=== PATIENT | male | born 2000 | race Caucasian/White ===

== ENCOUNTER 2021-04-14 13:13 | Emergency (ER) | payer BC ==
--- NOTE | 2021-04-14 13:44 | EDPHYS ---
Physician Documentation [facility] Name: Jorge A Ybarra Age: 20 yrs Sex: Male : 2000 Arrival Date: 04/14/2021 Time: 13:15 Bed 8 Private MD: ED Physician Alex Dalton HPI: 04/14 13:42 This 20 yrs old Male presents to ER via Ambulatory with complaints of kb Laceration To Hand. 13:42 The patient has a laceration related to: cutting sausage and cut heel of hand occurred kb at home, and there are no complicating factors. The injury was accidental. The laceration(s) is(are) located on the heel of left hand. Onset: The symptoms/episode began/occurred just prior to arrival. Associated signs and symptoms: The patient has no apparent associated signs or symptoms. The patient has not experienced similar symptoms in the past. The patient has not recently seen a physician. Historical: - Allergies: 13:28 No Known Allergies; kg - Home Meds: 13:28 None [Active]; kg - PMHx: 13:28 None; kg - PSHx: 13:28 right elbow sx; kg - Immunization history:: Adult Immunizations not up to date, Client reports having NOT received the Covid vaccine. - Social history:: Smoking status: Patient denies any tobacco usage or history of. Patient uses alcohol, on a daily basis. ROS: 13:40 Constitutional: Negative for fever, chills, and weight loss. kb 13:40 Skin: Positive for avulsion, of the heel of left hand. 13:40 All other systems are negative. Exam: 13:40 Constitutional: This is a well developed, well nourished patient who is awake, alert, kb and in no acute distress. Head/Face: Normocephalic, atraumatic. ENT: Moist Mucous membranes Respiratory: Respirations even and unlabored. No increased work of breathing, no retractions or nasal flaring. MS/ Extremity: Pulses equal, no cyanosis. Neurovascular intact. Full, normal range of motion. Neuro: Awake and alert, GCS 15, oriented to person, place, time, and situation. Moves all extremities. Normal gait. Psych: Awake, alert, with orientation to person, place and time. Behavior, mood, and affect are within normal limits. 13:40 Skin: injury, avulsion(s), A moderate sized of the heel of left hand. Vital Signs: 13:18 BP 160 / 85; Pulse 80; Resp 20; Temp 98.5; Pulse Ox 100% on R/A; Weight 97.52 kg (R); kg Height 6 ft. 0 in. (182.88 cm) (R); Pain 0/10; 13:18 Body Mass Index 29.16 (97.52 kg, 182.88 cm) kg MDM: 13:25 Patient medically screened. kb 13:40 Data reviewed: vital signs, nurses notes. Data interpreted: Pulse oximetry: on room air kb is 100 %. Interpretation: normal. Counseling: I had a detailed discussion with the patient and/or guardian regarding: the historical points, exam findings, and any diagnostic results supporting the discharge/admit diagnosis, the need for outpatient follow up, a family practitioner, to return to the emergency department if symptoms worsen or persist or if there are any questions or concerns that arise at home. 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 Exp: aa5 12/07/2022. Lot #: [id number]. } Route: IM; Site: left deltoid; 14:19 Follow up: Response: No adverse reaction aa5 Disposition: 18:07 Co-signature as Attending Physician, Alex Dalton MD I agree with the assessment and sarina plan of care. Disposition Summary: 04/14/21 13:44 Discharge Ordered Location: Home kb Condition: Stable kb Diagnosis - Laceration without foreign body of left hand - avulsion laceration kb Followup: kb - With: Emergency Department - When: As needed - Reason: Worsening of condition Followup: kb - With: Private Physician - When: 2 - 3 days - Reason: Recheck today's complaints, Continuance of care, Re-evaluation by your physician Discharge Instructions: - Discharge Summary Sheet kb - Deep Skin Avulsion kb - Laceration Care, Adult, [id number] kb Forms: - Medication Reconciliation Form kb - Thank You Letter kb - Antibiotic Education kb - Prescription Opioid Use kb Signatures: Lizette Alas FNP-C FNP-Alex Johnson MD MD cha Calderon, Audri, RN RN aa5 Dolores Cardenas, RN RN kg
--- NOTE | 2021-04-14 13:44 | ER ---
Nurse's Notes [facility] Name: Jorge A Ybarra Age: 20 yrs Sex: Male : 2000 Arrival Date: 04/14/2021 Time: 13:15 Bed 8 Private MD: Diagnosis: Laceration without foreign body of left hand-avulsion laceration Presentation: 04/14 13:18 Chief complaint: Patient states: Laceration to left palm. Cut with a knife while kg cutting up sausage. Coronavirus screen: Client denies travel out of the [place] in the last 14 days. At this time, unable to obtain information related to travel outside the [place] At this time, the client does not indicate any symptoms associated with coronavirus-19. Ebola Screen: Patient negative for fever greater than or equal to 101.5 degrees Fahrenheit, and additional compatible Ebola Virus Disease symptoms Patient denies exposure to infectious person. Patient denies travel to an Ebola-affected area in the 21 days before illness onset. No symptoms or risks identified at this time. Complicating Factors: There are no complicating factors for this patient. Initial Sepsis Screen: Does the patient meet any 2 criteria? No. Patient's initial sepsis screen is negative. Does the patient have a suspected source of infection? No. Patient's initial sepsis screen is negative. Risk Assessment: Do you want to hurt yourself or someone else? Patient reports no desire to harm self or others. Onset of symptoms was April 14, 2021 at 11:00. 13:18 Method Of Arrival: Ambulatory kg 13:18 Acuity: CANDIS 4 kg Triage Assessment: 13:26 General: Appears in no apparent distress. Behavior is calm, cooperative, appropriate kg for age, quiet. Pain: Denies pain. Injury Description: Laceration sustained to palm of left hand and Left first web space is clean, was sustained 1-2 hours ago. is bleeding a small amount. Historical: - Allergies: 13:28 No Known Allergies; kg - Home Meds: 13:28 None [Active]; kg - PMHx: 13:28 None; kg - PSHx: 13:28 right elbow sx; kg - Immunization history:: Adult Immunizations not up to date, Client reports having NOT received the Covid vaccine. - Social history:: Smoking status: Patient denies any tobacco usage or history of. Patient uses alcohol, on a daily basis. Screenin:26 Abuse screen: Denies threats or abuse. Denies injuries from another. Nutritional kg screening: No deficits noted. Tuberculosis screening: No symptoms or risk factors identified. Fall Risk None identified. Assessment: 13:30 General: Appears comfortable, Behavior is calm, cooperative. Pain: Complains of pain in aa5 left hand. Neuro: Level of Consciousness is awake, alert, obeys commands, Oriented to person, place, time, situation. Cardiovascular: Patient's skin is warm and dry. Respiratory: Airway is patent Respiratory effort is even, unlabored, Respiratory pattern is regular, symmetrical. GI: No signs and/or symptoms were reported involving the gastrointestinal system. : No signs and/or symptoms were reported regarding the genitourinary system. EENT: No signs and/or symptoms were reported regarding the EENT system. Derm: Skin is pink, warm \T\ dry. Musculoskeletal: Range of motion: intact in all extremities. Injury Description: Avulsion sustained to heel of left hand. 14:19 Reassessment: Patient is alert, oriented x 3, equal unlabored respirations, skin aa5 warm/dry/pink. Vital Signs: 13:18 BP 160 / 85; Pulse 80; Resp 20; Temp 98.5; Pulse Ox 100% on R/A; Weight 97.52 kg (R); kg Height 6 ft. 0 in. (182.88 cm) (R); Pain 0/10; 13:18 Body Mass Index 29.16 (97.52 kg, 182.88 cm) kg ED Course: 13:15 Patient arrived in ED. as 13:21 Triage completed. kg 13:23 Lizette Alas FNP-C is [facility]. kb 13:23 Alex Dalton MD is Attending Physician. kb 13:26 Patient has correct armband on for positive identification. kg 13:26 Arm band placed on right wrist. Patient Wound dressed. kg 13:[address], GREGORY is Primary Nurse. aa5 14:19 No provider procedures requiring assistance completed. Patient did not have IV access aa5 during this emergency room visit. 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 Exp: aa5 12/07/2022. Lot #: [id number]. } Route: IM; Site: left deltoid; 14:19 Follow up: Response: No adverse reaction aa5 Outcome: 13:44 Discharge ordered by . dimitry 14:19 Patient left the ED. iw 14:19 Discharged to home ambulatory. aa5 14:19 Condition: good 14:19 Discharge instructions given to patient, Instructed on discharge instructions, follow up and referral plans. Demonstrated understanding of instructions, follow-up care. Signatures: Lizette Alas, EVONNE-C EVONNE-Tish Blanco Irene, GREGORY JENKINS iw Balbina Lane RN RN aa5 Dolores Cardenas, GREGORY RN kg
[2021-04-14 14:25] VITALS: BP 160/85; TEMP 98.5; O2SAT 100
[2021-04-14] MEDS ORDERED: TETANUS & DIPHTHERIA TOX,ADULT 0.5 ML VIAL ONE (14:38)
== END 2021-04-14 14:19 | disposition home or self-care (01) ==
LOC: ER 13:13
DX: S61.412A Laceration without foreign body of left hand, initial encounter (principal); W26.0XXA Contact with knife, initial encounter; Y93.89 Activity, other specified; Y92.009 Unspecified place in unspecified non-institutional (private) residence as the place of occurrence of the external cause; Z23 Encounter for immunization
CPT/HCPCS: 90471; 90714; 99283